=== PATIENT | male | born 1975 | race Caucasian/White ===

== ENCOUNTER 2020-01-30 14:47 | Emergency (ER) | payer BC ==
[2020-01-30 14:52] VITALS: BP 166/99; PULSE 62; RESP 18; TEMP 98.4
[2020-01-30] MEDS ORDERED: DIPH,PERTUS(ACELL)TETVAC-LF 0.5 ML VIAL IM ONE (14:59)
[2020-01-30] MEDS ORDERED: LIDOCAINE 1% INJ 10MG/ML (20 ML MDV) SQ ONE (14:59)
--- NOTE | 2020-01-30 15:37 | ED ---
Wound/Laceration HPI - General Chief Complaint: Wound/Laceration Stated Complaint: Head Lac Time Seen by Provider: 01/30/20 14:56 Source: patient Mode of arrival: ambulatory Limitations: no limitations - History of Present Illness Initial Comments: Patient is a 44-year-old male presenting to the emergency Department with complaints of a laceration to his forehead. Patient states he was attempting to remove a wooden pillar that was into the ground when it broke and the would pillar hit his forehead. Patient denies loss of consciousness, blurry vision, nausea, vomiting. He states he does not have a headache. He does not remember his last tetanus vaccine. He denies being on blood thinners. He has no other complaints at this time. - Related Data Previous Rx's Medication Instructions Recorded Hydrocodone/Acetaminophen [[place] 1 each PO Q4HR PRN #20 tab 05/04/14 5-325] Ketorolac [Toradol] 10 mg PO Q6HR #15 tab 05/04/14 Tamsulosin HCl [Flomax] 0.4 mg PO DAILY #10 cap 05/04/14 Ciprofloxacin HCl [Cipro] 500 mg PO Q12HR #14 tablet 05/06/14 Docusate [Colace] 100 mg PO BID #4 capsule 05/06/14 Ondansetron HCl [Zofran] 4 mg PO Q8HR #15 tab 05/06/14 Allergies Allergy/AdvReac Type Severity Reaction Status Date / Time No Known Allergies Allergy Verified 01/30/20 14:52 Review of Systems ROS Statement: Those systems with pertinent positive or pertinent negative responses have been documented in the HPI. ROS Other: All systems not noted in ROS Statement are negative. Past Medical History Past Medical History: No Reported History History of Any Multi-Drug Resistant Organisms: None Reported Past Surgical History: No Surgical Hx Reported Past Psychological History: No Psychological Hx Reported Smoking Status: Never smoker Past Alcohol Use History: None Reported Past Drug Use History: None Reported General Exam - General Exam Comments Initial Comments: GENERAL: Well-appearing, well-nourished and in no acute distress. HEAD: Atraumatic, normocephalic. EYES: Pupils equal round and reactive to light, extraocular movements intact, sclera anicteric, conjunctiva are normal. ENT: TMs normal, nares patent, oropharynx clear without exudates. Moist mucous membranes. NECK: Normal range of motion, supple without lymphadenopathy or JVD. LUNGS: Breath sounds clear to auscultation bilaterally and equal. No wheezes rales or rhonchi. HEART: Regular rate and rhythm without murmurs, rubs or gallops. ABDOMEN: Soft, nontender, normoactive bowel sounds. No guarding, no rebound. No masses appreciated. : Deferred EXTREMITIES: Normal range of motion, no pitting or edema. No clubbing or cyanosis. NEUROLOGICAL: Cranial nerves II through XII grossly intact. Normal speech, normal gait. PSYCH: Normal mood, normal affect. SKIN: Warm, Dry, normal turgor, no rashes. Patient has a 1 cm, L-shaped laceration to the left upper forehead, into the hairline. Bleeding is controlled at this time. There is no hematoma. Limitations: no limitations Course Vital Signs 01/30/20 14:49 Temperature 98.4 F Pulse Rate 62 Respiratory 18 Rate Blood Pressure 166/99 O2 Sat by Pulse 99 Oximetry Procedures - Laceration Laceration #1 Consent Obtained: verbal consent Indication: laceration Site: scalp (Left upper forehead, into the scalp) Size (cm): 1 Description: linear Depth: simple, single layer Anesthetic Used: lidocaine 1% Anesthesia Technique: local infiltration Amount (mls): 2 Pre-repair: irrigated extensively Type of Sutures: nylon Size of Sutures: 4-0 Number of Sutures: 3 Technique: simple, interrupted Patient Tolerated Procedure: well Medical Decision Making - Medical Decision Making Patient is a 44-year-old male here with a 1 cm, L-shaped laceration to the left upper forehead. There was no loss of consciousness. Patient's exam today is unremarkable. Patient's tetanus vaccine was updated. Patient received 3, 4-0 sutures. Patient tolerated procedure well. He is stable for discharge. He'll have sutures removed in 7-10 days. Patient is agreement with this plan of care. Disposition Clinical Impression: Forehead laceration Disposition: HOME SELF-CARE Condition: Stable Instructions (If sedation given, give patient instructions): Care For Your Stitches (ED) Additional Instructions: Stitches need to removed in 7-10 days. Keep area clean and dry. Is patient prescribed a controlled substance at d/c from ED?: No Referrals: None,Stated [Primary Care Provider] - 1-2 days
== END 2020-01-30 15:43 | disposition home or self-care (01) ==
LOC: EC 14:47
DX: S01.81XA Laceration without foreign body of other part of head, initial encounter (principal); Z23 Encounter for immunization; W22.8XXA Striking against or struck by other objects, initial encounter; Y93.89 Activity, other specified; Y92.009 Unspecified place in unspecified non-institutional (private) residence as the place of occurrence of the external cause
CPT/HCPCS: 90715; 90471; 99282; 12011; J2001

== ENCOUNTER 2020-05-06 17:24 | Emergency (ER) | payer BC ==
[2020-05-06] MEDS ORDERED: SODIUM CHLORIDE 0.9% 1,000 ML IV STA (17:46)
[2020-05-06] MEDS ORDERED: KETOROLAC 30 MG/ML 1 ML VIAL IVP STA (17:46)
[2020-05-06] MEDS ORDERED: ONDANSETRON 4 MG/2 ML VIAL IVP STA (17:46)
--- NOTE | 2020-05-06 17:49 | ED ---
Abdominal Pain HPI - General Chief Complaint: Abdominal Pain Stated Complaint: kidney stones Time Seen by Provider: 05/06/20 17:35 Source: patient Mode of arrival: ambulatory Limitations: no limitations - History of Present Illness Initial Comments: patient is a 45-year-old male presenting to the emergency Department with complaints of left flank pain that started approximately 3 hours ago. He states he does have a history of kidney stones and this feels similar. He does admit to nausea, vomiting. He states some radiation of pain into his left side. He denies any history of abdominal surgeries. he has been having normal bowel movements. Denies any hematuria. Denies any fever or chills. He did not take any pain medicine for this. He has no further complaints at this time. Upon arrival to the ER, his vitals are stable. - Related Data Previous Rx's Medication Instructions Recorded Hydrocodone/Acetaminophen [[place] 1 each PO Q4HR PRN #20 tab 05/04/14 5-325] Ketorolac [Toradol] 10 mg PO Q6HR #15 tab 05/04/14 Tamsulosin HCl [Flomax] 0.4 mg PO DAILY #10 cap 05/04/14 Ciprofloxacin HCl [Cipro] 500 mg PO Q12HR #14 tablet 05/06/14 Docusate [Colace] 100 mg PO BID #4 capsule 05/06/14 Ondansetron HCl [Zofran] 4 mg PO Q8HR #15 tab 05/06/14 Ketorolac [Toradol] 10 mg PO Q8HR #15 tab 05/06/20 Ondansetron Odt [Zofran Odt] 4 mg PO Q8HR PRN #10 tab 05/06/20 Tamsulosin [Flomax] 0.4 mg PO DAILY #7 cap 05/06/20 Allergies Allergy/AdvReac Type Severity Reaction Status Date / Time No Known Allergies Allergy Verified 05/06/20 17:32 Review of Systems ROS Statement: Those systems with pertinent positive or pertinent negative responses have been documented in the HPI. ROS Other: All systems not noted in ROS Statement are negative. Past Medical History Past Medical History: No Reported History History of Any Multi-Drug Resistant Organisms: None Reported Past Surgical History: No Surgical Hx Reported Past Psychological History: No Psychological Hx Reported Past Alcohol Use History: None Reported Past Drug Use History: None Reported General Exam - General Exam Comments Initial Comments: GENERAL: Patient is well-developed and well-nourished. Patient is nontoxic and in no acute distress, but is standing, appears uncomfortable. HEAD: Atraumatic, normocephalic. EYES: Pupils equal round and reactive to light, extraocular movements intact, sclera anicteric, conjunctiva are normal. Eyelids were unremarkable. ENT: TMs normal, nares patent, oropharynx clear without exudates. Moist mucous membranes. NECK: Normal range of motion, supple without lymphadenopathy or JVD. LUNGS: Unlabored respirations. Breath sounds clear to auscultation bilaterally and equal. No wheezes rales or rhonchi. HEART: Regular rate and rhythm without murmurs, rubs or gallops. ABDOMEN: left flank pain, left side of the abdomen pain. No other abdominal pain with palpation. Soft, normoactive bowel sounds. No guarding, no rebound. No masses appreciated. : Deferred MUSCULOSKELETAL: Normal extremities with adequate strength and normal range of motion, no pitting or edema. No clubbing or cyanosis. NEUROLOGICAL: Normal speech, normal gait. PSYCH: Normal mood, normal affect. SKIN: Warm, Dry, normal turgor, no rashes or lesions noted. Limitations: no limitations Course Vital Signs 05/06/20 17:29 Temperature 98.7 F Pulse Rate 84 Respiratory 18 Rate Blood Pressure 182/123 O2 Sat by Pulse 99 Oximetry Medical Decision Making - Medical Decision Making patient is a 45-year-old male here for left flank pain 3 hours. He has a history of kidney stones which feels similar. His vitals are stable. Lab work shows no acute abnormalities, urine has a large amount of blood, no signs of infection. CT of the abdomen shows left-sided hydronephrosis, 6 mm distal ureteral stone. Patient was given fluids, Zofran and Toradol reports improvement in his symptoms. He is comfortable in the bed. I discussed with patient the findings. He is stable for discharge. I will send him home with some additional Zofran, Flomax, Toradol for discomfort. I will give him urology referral. Patient is agreement with this plan of care. Return parameters were discussed with the patient he verbalizes understanding. Case discussed with Dr. rivera. - Lab Data Result diagrams: 05/06/20 17:59 08/08/20 17:59 Lab Results 05/06/20 05/06/20 05/06/20 Range/Units 17:59 17:59 17:59 WBC 9.6 (3.8-10.6) k/uL RBC 5.77 (4.30-5.90) m/uL Hgb 16.5 (13.0-17.5) gm/dL Hct 48.5 (39.0-53.0) % MCV 84.0 (80.0-100.0) fL MCH 28.6 (25.0-35.0) pg MCHC 34.1 (31.0-37.0) g/dL RDW 12.4 (11.5-15.5) % Plt Count 228 (150-450) k/uL Neutrophils % 58 % Lymphocytes % 32 % Monocytes % 5 % Eosinophils % 3 % Basophils % 1 % Neutrophils # 5.6 (1.3-7.7) k/uL Lymphocytes # 3.1 (1.0-4.8) k/uL Monocytes # 0.5 (0-1.0) k/uL Eosinophils # 0.2 (0-0.7) k/uL Basophils # 0.1 (0-0.2) k/uL Sodium 139 (137-145) mmol/L Potassium 3.9 (3.5-5.1) mmol/L Chloride 107 (98-107) mmol/L Carbon Dioxide 22 (22-30) mmol/L Anion Gap 10 mmol/L BUN 19 (9-20) mg/dL Creatinine 1.38 H (0.66-1.25) mg/dL Est GFR (CKD-EPI)AfAm 71 (>60 ml/min/1.73 sqM) Est GFR (CKD-EPI)NonAf 61 (>60 ml/min/1.73 sqM) Glucose 107 H (74-99) mg/dL Plasma Lactic Acid Aaron (0.7-2.0) mmol/L Calcium 10.1 (8.4-10.2) mg/dL Total Bilirubin 0.9 (0.2-1.3) mg/dL AST 37 (17-59) U/L ALT 22 (4-49) U/L Alkaline Phosphatase 87 (38-126) U/L Total Protein 7.6 (6.3-8.2) g/dL Albumin 4.9 (3.5-5.0) g/dL Lipase 241 (23-300) U/L Urine Color Yellow Urine Appearance Clear (Clear) Urine pH 5.5 (5.0-8.0) Ur Specific [place] 1.025 (1.001-1.035) Urine Protein Trace H (Negative) Urine Glucose (UA) Negative (Negative) Urine Ketones Negative (Negative) Urine Blood Large H (Negative) Urine Nitrite Negative (Negative) Urine Bilirubin Negative (Negative) Urine Urobilinogen <2.0 (<2.0) mg/dL Ur Leukocyte Esterase Negative (Negative) Urine RBC >182 H (0-5) /hpf Urine WBC 1 (0-5) /hpf Urine Mucus Rare H (None) /hpf 05/06/20 Range/Units 17:59 WBC (3.8-10.6) k/uL RBC (4.30-5.90) m/uL Hgb (13.0-17.5) gm/dL Hct (39.0-53.0) % MCV (80.0-100.0) fL MCH (25.0-35.0) pg MCHC (31.0-37.0) g/dL RDW (11.5-15.5) % Plt Count (150-450) k/uL Neutrophils % % Lymphocytes % % Monocytes % % Eosinophils % % Basophils % % Neutrophils # (1.3-7.7) k/uL Lymphocytes # (1.0-4.8) k/uL Monocytes # (0-1.0) k/uL Eosinophils # (0-0.7) k/uL Basophils # (0-0.2) k/uL Sodium (137-145) mmol/L Potassium (3.5-5.1) mmol/L Chloride (98-107) mmol/L Carbon Dioxide (22-30) mmol/L Anion Gap mmol/L BUN (9-20) mg/dL Creatinine (0.66-1.25) mg/dL Est GFR (CKD-EPI)AfAm (>60 ml/min/1.73 sqM) Est GFR (CKD-EPI)NonAf (>60 ml/min/1.73 sqM) Glucose (74-99) mg/dL Plasma Lactic Acid Aaron 1.3 (0.7-2.0) mmol/L Calcium (8.4-10.2) mg/dL Total Bilirubin (0.2-1.3) mg/dL AST (17-59) U/L ALT (4-49) U/L Alkaline Phosphatase (38-126) U/L Total Protein (6.3-8.2) g/dL Albumin (3.5-5.0) g/dL Lipase (23-300) U/L Urine Color Urine Appearance (Clear) Urine pH (5.0-8.0) Ur Specific [place] (1.001-1.035) Urine Protein (Negative) Urine Glucose (UA) (Negative) Urine Ketones (Negative) Urine Blood (Negative) Urine Nitrite (Negative) Urine Bilirubin (Negative) Urine Urobilinogen (<2.0) mg/dL Ur Leukocyte Esterase (Negative) Urine RBC (0-5) /hpf Urine WBC (0-5) /hpf Urine Mucus (None) /hpf Disposition Clinical Impression: Left flank pain, Left ureteral stone Disposition: HOME SELF-CARE Condition: Stable Instructions (If sedation given, give patient instructions): Kidney Stones (ED) Additional Instructions: Please return to the Emergency Department if symptoms worsen or any other concerns. Take medications as prescribed. Follow up with PCP or urology as needed. Prescriptions: Tamsulosin [Flomax] 0.4 mg PO DAILY #7 cap Ketorolac [Toradol] 10 mg PO Q8HR #15 tab Ondansetron Odt [Zofran Odt] 4 mg PO Q8HR PRN #10 tab PRN Reason: Nausea Is patient prescribed a controlled substance at d/c from ED?: No Referrals: None,Stated [Primary Care Provider] - 1-2 days Renzo Corado MD [STAFF PHYSICIAN] - 1-2 days
[2020-05-06 18:17] LABS: Basophils # (A) 0.1 k/uL (0-0.2); Basophils % (A) 1 %; Eosinophils # (A) 0.2 k/uL (0-0.7); Eosinophils % (A) 3 %; HCT 48.5 % (39.0-53.0); HGB 16.5 gm/dL (13.0-17.5); Lymphocytes # (A) 3.1 k/uL (1.0-4.8); Lymphocytes % (A) 32 %; MCH 28.6 pg (25.0-35.0); MCHC 34.1 g/dL (31.0-37.0); Mean Platelet Volume 7.5; Monocytes # (A) 0.5 k/uL (0-1.0); Monocytes % (A) 5 %; Neutrophils # (A) 5.6 k/uL (1.3-7.7); Neutrophils % (A) 58 %; Platelet Count 228 k/uL (150-450); RBC 5.77 m/uL (4.30-5.90); RDW 12.4 % (11.5-15.5); WBC 9.6 k/uL (3.8-10.6)
[2020-05-06 18:28] LABS: Albumin 4.9 g/dL (3.5-5.0); Calcium 10.1 mg/dL (8.4-10.2); Potassium 3.9 mmol/L (3.5-5.1); Total Bilirubin 0.9 mg/dL (0.2-1.3); Total Protein 7.6 g/dL (6.3-8.2)
[2020-05-06 18:34] LABS: Appearance,Urine Clear (Clear); Bilirubin,Urine Negative (Negative); Blood,Urine Large (Negative); Color,Urine Yellow; Glucose,Urine (UA) Negative (Negative); Ketones,Urine Negative (Negative); Leukocyte Esterase,Urine Negative (Negative); Mucus,Urine Rare /hpf; Nitrite,Urine Negative (Negative); PH, Urine 5.5 (5.0-8.0); Protein,Urine Trace (Negative); RBC,Urine >182 /hpf (0-5); Specific Gravity,Urine 1.025 (1.001-1.035); Urobilinogen,Urine <2.0 mg/dL (<2.0); WBC,Urine 1 /hpf (0-5)
--- NOTE | 2020-05-06 18:48 | CT ---
EXAMINATION TYPE: CT abdomen pelvis wo con DATE OF EXAM: 05/06/2020 COMPARISON: 05/04/2014 HISTORY: Left sided pain with history of stones. CT DLP: 881.9 mGycm Automated exposure control for dose reduction was used. Images were obtained from the diaphragm to the floor the pelvis with no contrast. The lung bases are clear. There is no pleural effusion. Heart size is normal. There is no pericardial effusion. Liver spleen stomach pancreas gallbladder appear normal. Bile ducts are not dilated. There is no adrenal mass. Kidneys show normal size and contour. There is left-sided hydronephrosis wi th 6 mm obstructing calculus at the left ureteropelvic junction. There is 2 mm calcification lower po le left kidney. There are 2 mm calcifications in the lateral left kidney. There is 2 mm calcification upper pole right kidney. The ureters are not dilated. There is no retroperitoneal adenopathy. Append ix appears normal. Bladder distends smoothly. There is no inguinal hernia. There is no free fluid in the pelvis. There i s no sign of a pelvic mass. There is no mesenteric edema. There is no ascites or free air. There is no bowel obstruction. There i s 2 cm umbilical hernia that contains fat. There is narrowing of L4-5 and L5-S1 disc spaces with spurring. Lumbar vertebra have normal alignment . There is no compression fracture. Bony pelvis is intact. IMPRESSION: Obstructing calculus proximal left ureter with left-sided hydronephrosis. Multiple bilateral renal calculi. There is clearing of the right side obstruction compared to old naila waldrop
[2020-05-06 19:36] VITALS: BP 133/92; PULSE 57; RESP 16; TEMP 97.9
== END 2020-05-06 19:36 | disposition home or self-care (01) ==
LOC: EC 17:24
DX: N13.2 Hydronephrosis with renal and ureteral calculous obstruction (principal)
CPT/HCPCS: 36415; 80053; 83605; 83690; 85025; 81001; 74176; 99284; 96374; 96375; 96361; J2405; J1885

== ENCOUNTER 2020-05-10 14:06 | Emergency (ER) | payer BC ==
[2020-05-10 14:16] VITALS: RESP 16; TEMP 98.2
[2020-05-10] MEDS ORDERED: HYDROmorphone 0.5 MG/0.5 ML SYRINGE IVP STA (14:45)
[2020-05-10] MEDS ORDERED: ONDANSETRON 4 MG/2 ML VIAL IVP STA (14:45)
[2020-05-10] MEDS ORDERED: SODIUM CHLORIDE 0.9% 2,000 ML IV STA (14:45)
--- NOTE | 2020-05-10 14:53 | ED ---
Abdominal Pain HPI - General Chief Complaint: Abdominal Pain Stated Complaint: kidney stones Time Seen by Provider: 05/10/20 14:33 Source: patient, RN notes reviewed Mode of arrival: ambulatory Limitations: no limitations - History of Present Illness Initial Comments: This a 45-year-old male presents emergency Department chief complaint severe left flank pain. Patient states that he is seen here on Friday diagnosed with a left 6 mm UVJ calculus. Patient states that the pain seemed to get better on Friday but states that the pain is unbearable today. Patient does not have a current primary care physician or urologist. Patient states that he has been taking Toradol which was helping but he recently ran out of Toradol. Patient patient denies any fevers or chills no dysuria denies any current hematuria. Patient denies any chest pain or shortness of breath no other complaints. - Related Data Previous Rx's Medication Instructions Recorded Hydrocodone/Acetaminophen [[place] 1 each PO Q4HR PRN #20 tab 05/04/14 5-325] Ketorolac [Toradol] 10 mg PO Q6HR #15 tab 05/04/14 Tamsulosin HCl [Flomax] 0.4 mg PO DAILY #10 cap 05/04/14 Ciprofloxacin HCl [Cipro] 500 mg PO Q12HR #14 tablet 05/06/14 Docusate [Colace] 100 mg PO BID #4 capsule 05/06/14 Ondansetron HCl [Zofran] 4 mg PO Q8HR #15 tab 05/06/14 Ketorolac [Toradol] 10 mg PO Q8HR #15 tab 05/06/20 Ondansetron Odt [Zofran Odt] 4 mg PO Q8HR PRN #10 tab 05/06/20 Tamsulosin [Flomax] 0.4 mg PO DAILY #7 cap 05/06/20 HYDROcodone/APAP 7.5-325MG [[place] 1 tab PO Q6HR PRN 3 Days #12 tab 05/10/20 7.5-325] Ondansetron Odt [Zofran Odt] 4 mg PO Q8HR PRN #14 tab 05/10/20 Allergies Allergy/AdvReac Type Severity Reaction Status Date / Time No Known Allergies Allergy Verified 05/10/20 14:15 Review of Systems ROS Statement: Those systems with pertinent positive or pertinent negative responses have been documented in the HPI. ROS Other: All systems not noted in ROS Statement are negative. Past Medical History Past Medical History: No Reported History History of Any Multi-Drug Resistant Organisms: None Reported Past Surgical History: No Surgical Hx Reported Past Psychological History: No Psychological Hx Reported Smoking Status: Never smoker Past Alcohol Use History: None Reported Past Drug Use History: None Reported General Exam Limitations: no limitations General appearance: alert, in no apparent distress Head exam: Present: atraumatic, normocephalic, normal inspection Eye exam: Present: normal appearance, PERRL, EOMI. Absent: scleral icterus, conjunctival injection, periorbital swelling ENT exam: Present: normal exam, normal oropharynx, mucous membranes moist Neck exam: Present: normal inspection, full ROM. Absent: tenderness, meningismus, lymphadenopathy Respiratory exam: Present: normal lung sounds bilaterally. Absent: respiratory distress, wheezes, rales, rhonchi, stridor Cardiovascular Exam: Present: regular rate, normal rhythm, normal heart sounds. Absent: systolic murmur, diastolic murmur, rubs, gallop, clicks GI/Abdominal exam: Present: soft, normal bowel sounds. Absent: distended, tenderness, guarding, rebound, rigid Back exam: Absent: CVA tenderness (R), CVA tenderness (L) Neurological exam: Present: alert, oriented X3 Skin exam: Present: warm, dry, intact, normal color. Absent: rash Course Vital Signs 05/10/20 05/10/20 14:13 16:30 Temperature 98.2 F Pulse Rate 87 6 L Respiratory 16 16 Rate Blood Pressure 182/100 141/86 O2 Sat by Pulse 98 99 Oximetry Medical Decision Making - Medical Decision Making 45-year-old male present emergency department for kidney stone. Patient continues to have left-sided flank pain related to a 6 mm stone. Patient's creatinine is 2.0. Case discussed with Dr. Mackey recommends patient be seen in office tomorrow at 1120. Patient will be discharged with pain medication he is advised to not take any anti-inflammatories. Return parameters discussed. - Lab Data Result diagrams: 05/10/20 15:07 05/10/20 15:07 Lab Results 05/10/20 05/10/20 05/10/20 Range/Units 15:07 15:07 15:07 WBC 10.4 (3.8-10.6) k/uL RBC 5.39 (4.30-5.90) m/uL Hgb 15.0 (13.0-17.5) gm/dL Hct 45.4 (39.0-53.0) % MCV 84.2 (80.0-100.0) fL MCH 27.9 (25.0-35.0) pg MCHC 33.1 (31.0-37.0) g/dL RDW 12.2 (11.5-15.5) % Plt Count 203 (150-450) k/uL Neutrophils % 81 % Lymphocytes % 10 % Monocytes % 7 % Eosinophils % 1 % Basophils % 0 % Neutrophils # 8.4 H (1.3-7.7) k/uL Lymphocytes # 1.1 (1.0-4.8) k/uL Monocytes # 0.7 (0-1.0) k/uL Eosinophils # 0.1 (0-0.7) k/uL Basophils # 0.0 (0-0.2) k/uL Sodium 138 (137-145) mmol/L Potassium 4.7 (3.5-5.1) mmol/L Chloride 104 (98-107) mmol/L Carbon Dioxide 24 (22-30) mmol/L Anion Gap 10 mmol/L BUN 21 H (9-20) mg/dL Creatinine 2.03 H (0.66-1.25) mg/dL Est GFR (CKD-EPI)AfAm 44 (>60 ml/min/1.73 sqM) Est GFR (CKD-EPI)NonAf 38 (>60 ml/min/1.73 sqM) Glucose 104 H (74-99) mg/dL Calcium 9.5 (8.4-10.2) mg/dL Total Bilirubin 1.2 (0.2-1.3) mg/dL AST 33 (17-59) U/L ALT 22 (4-49) U/L Alkaline Phosphatase 92 (38-126) U/L Total Protein 7.1 (6.3-8.2) g/dL Albumin 4.6 (3.5-5.0) g/dL Lipase 140 (23-300) U/L Urine Color Yellow Urine Appearance Clear (Clear) Urine pH 5.5 (5.0-8.0) Ur Specific [place] 1.023 (1.001-1.035) Urine Protein Negative (Negative) Urine Glucose (UA) Negative (Negative) Urine Ketones Negative (Negative) Urine Blood Moderate H (Negative) Urine Nitrite Negative (Negative) Urine Bilirubin Negative (Negative) Urine Urobilinogen <2.0 (<2.0) mg/dL Ur Leukocyte Esterase Trace H (Negative) Urine RBC 65 H (0-5) /hpf Urine WBC 4 (0-5) /hpf Urine Bacteria Rare H (None) /hpf Urine Mucus Rare H (None) /hpf Disposition Clinical Impression: Acute kidney injury, Left ureteral stone, Left flank pain Disposition: HOME SELF-CARE Condition: Stable Instructions (If sedation given, give patient instructions): Abdominal Pain (ED) Additional Instructions: Please return to the Emergency Department if symptoms worsen or any other concerns. Prescriptions: HYDROcodone/APAP 7.5-325MG [[place] 7.5-325] 1 tab PO Q6HR PRN 3 Days #12 tab PRN Reason: pain Ondansetron Odt [Zofran Odt] 4 mg PO Q8HR PRN #14 tab PRN Reason: Nausea Is patient prescribed a controlled substance at d/c from ED?: Yes When asked, does pt state using other controlled substances?: No If prescribed controlled substance>3 days was MAPS reviewed?: Prescribed <3 Days If opioid is for acute pain is fill amount 7 days or less?: Yes If Rx opioid, was Start Talking consent form obtained?: Yes Referrals: None,Stated [Primary Care Provider] - 1-2 days Casey Mackey MD [STAFF PHYSICIAN] - 1-2 days Time of Disposition: 16:44
[2020-05-10 15:33] LABS: Basophils % (A) 0 %; Eosinophils # (A) 0.1 k/uL (0-0.7); Eosinophils % (A) 1 %; HCT 45.4 % (39.0-53.0); Lymphocytes # (A) 1.1 k/uL (1.0-4.8); Lymphocytes % (A) 10 %; MCH 27.9 pg (25.0-35.0); MCHC 33.1 g/dL (31.0-37.0); MCV 84.2 fL (80.0-100.0); Mean Platelet Volume 7.5; Monocytes # (A) 0.7 k/uL (0-1.0); Monocytes % (A) 7 %; Neutrophils # (A) 8.4 k/uL (1.3-7.7); Neutrophils % (A) 81 %; Platelet Count 203 k/uL (150-450); RBC 5.39 m/uL (4.30-5.90); RDW 12.2 % (11.5-15.5); WBC 10.4 k/uL (3.8-10.6)
[2020-05-10 15:40] LABS: Albumin 4.6 g/dL (3.5-5.0); Appearance,Urine Clear (Clear); Bacteria,Urine Rare /hpf; Bilirubin,Urine Negative (Negative); Blood,Urine Moderate (Negative); Calcium 9.5 mg/dL (8.4-10.2); Color,Urine Yellow; Glucose,Urine (UA) Negative (Negative); Ketones,Urine Negative (Negative); Leukocyte Esterase,Urine Trace (Negative); Mucus,Urine Rare /hpf; Nitrite,Urine Negative (Negative); PH, Urine 5.5 (5.0-8.0); Potassium 4.7 mmol/L (3.5-5.1); Protein,Urine Negative (Negative); RBC,Urine 65 /hpf (0-5); Specific Gravity,Urine 1.023 (1.001-1.035); Total Bilirubin 1.2 mg/dL (0.2-1.3); Total Protein 7.1 g/dL (6.3-8.2); Urobilinogen,Urine <2.0 mg/dL (<2.0); WBC,Urine 4 /hpf (0-5)
--- NOTE | 2020-05-10 15:56 | XR ---
EXAMINATION TYPE: XR KUB DATE OF EXAM: 05/10/2020 3:31 PM CLINICAL HISTORY: Left flank pain. History of kidney stones. TECHNIQUE: Upright images of the abdomen and pelvis were obtained COMPARISON: Abdominal radiograph 05/06/2014. CT abdomen pelvis 05/06/2020. FINDINGS: The known left proximal ureteral 6 mm calculus is just inferolateral to the L3 transverse p rocess, not significant changed in position from 05/06/2020 CT comparison. The bilateral renal shadows are excluded due to overlying bowel contents. Pelvic vascular and prostate calcification. The lung ba ses are clear. The osseous structures are intact. IMPRESSION: 1. Known left proximal ureteral 6 mm calculus is not significantly changed in position versus 0 CT comparison. 2. Nonspecific bowel gas pattern.
[2020-05-10 16:53] VITALS: BP 139/89; PULSE 79
== END 2020-05-10 16:52 | disposition home or self-care (01) ==
LOC: EC 14:06
DX: N20.1 Calculus of ureter (principal); N17.9 Acute kidney failure, unspecified; Z87.442 Personal history of urinary calculi
CPT/HCPCS: 36415; 80053; 83690; 85025; 81001; 74018; 96374; 96375; 96361 ×2; 99284; J2405; J1170

== ENCOUNTER 2025-04-11 05:49 | Day surgery (SDC) | payer BC ==
[2025-04-11] MEDS ORDERED: LIDOCAINE 1% (10MG/ML) FOR IV START INTRADERMA PRN (06:33)
[2025-04-11] MEDS ORDERED: HYDROmorphone 0.5 MG/0.5 ML SYRINGE IVP PRN (06:33)
[2025-04-11] MEDS: ONDANSETRON 4 MG/2 ML VIAL IVP ONE (06:39)
[2025-04-11] MEDS: LACTATED RINGERS 1,000 ML IV SCH (06:39)
[2025-04-11] MEDS: DEXAMETHASONE SOD PHOSPHATE 4 MG/ML 1 ML VIAL IV ONE (06:39)
[2025-04-11] MEDS: ACETAMINOPHEN TAB 500 MG TAB PO PRN (06:41)
[2025-04-11] MEDS: IV FLUID CONTINUATION 1,000 ML IV ONE (06:43)
[2025-04-11 07:04] LABS: HCT 46.5 % (39.6-50.0); HGB 16.0 g/dL (13.0-17.0); MCH 28.5 pg (27.0-32.0); MCHC 34.4 g/dL (32.0-37.0); MCV 82.7 fL (80.0-97.0); Platelet Count 220 10*3/uL (140-440); RBC 5.62 10*6/uL (4.40-5.60); RDW 12.4 % (11.5-14.5); WBC 6.88 10*3/uL (4.50-10.00)
--- NOTE | 2025-04-11 07:19 | P.ANPRN ---
Procedure Note - Anesthesia - Nerve Block Performed Bilateral Erector Spinae Single Time Out Performed: Yes Date of Procedure: 04/11/25 Procedure Start Time: : Procedure Stop Time: :08 Location of Patient: PreOp Indication: Acute Post-Operative Pain, Analgesia, Requested by Surgeon Sedation Type: Sedate with meaningful contact maintained Preparation: Sterile Prep Position: Prone Catheter: None Needle Types: Pajunk Needle Gauge: 21 Ultrasound used to visualize needle placement: Yes Ultrasound used to observe medication spread: Yes Injectate: 0.5% Ropivacaine (see comment for volume) ([id number], Needle level X16---Btxa side.) Blood Aspirated: No Pain Paresthesia on Injection Noted: No Resistance on Injection: Normal Image Stored and Saved: Yes Events: Uneventful and Well Tolerated
[2025-04-11] MEDS: MIDAZOLAM 2 MG/2 ML VIAL IV ONE (07:20)
[2025-04-11] MEDS: fentaNYL (PF) 50 MCG/ML 2 ML AMP IVP PRN (07:21)
[2025-04-11] MEDS: HEPARIN SODIUM,PORCINE 5,000 UNIT/ML 1 ML VIAL SQ PRN (07:22)
[2025-04-11] MEDS ORDERED: DEXAMETHASONE SOD PHOSPHATE 4 MG/ML 1 ML VIAL ONE (07:28)
[2025-04-11] MEDS ORDERED: ROPIVACAINE 5 MG/ML 30 ML VIAL ONE (07:28)
[2025-04-11] MEDS ORDERED: LIDOCAINE 1% INJ 10MG/ML (20 ML MDV) ONE (07:28)
[2025-04-11] MEDS ORDERED: fentaNYL (PF) 50 MCG/ML 2 ML AMP ONE (07:28)
[2025-04-11] MEDS ORDERED: GLYCOPYRROLATE 0.2 MG/ML 2 ML VIAL ONE (07:28)
[2025-04-11] MEDS ORDERED: LIDOCAINE 4% LTA KIT (4 ML) TOPICAL ONE (07:28)
[2025-04-11] MEDS ORDERED: SUCCINYLCHOLINE CHLORIDE 200 MG/10 ML VIAL IV ONE (07:28)
[2025-04-11] MEDS ORDERED: NEOSTIGMINE 1 MG/ML 10 ML VIAL ONE (07:28)
[2025-04-11] MEDS ORDERED: PROPOFOL 10 MG/ML 20 ML VIAL IV ONE (07:28)
[2025-04-11] MEDS ORDERED: ROCURONIUM 10 MG/ML (5 ML VIAL) IV ONE (07:28)
[2025-04-11] MEDS: BUPIVACAINE (PF) 0.25% 30 ML VIAL SQ ONE ×3 (07:46→08:27)
[2025-04-11 08:41] VITALS: TEMP 97.3
--- NOTE | 2025-04-11 08:51 | P.GSHP ---
History of Present Illness H&P Date: 04/11/25 Chief Complaint: Umbilical hernia 49-year-old male seen in the office in January. Patient has complaints of a bulge at the umbilicus. Gradually increasing in size. Mild soreness. Past Medical History Past Medical History: No Reported History Additional Past Medical History / Comment(s): kidney stones, umbilical hernia History of Any Multi-Drug Resistant Organisms: None Reported Past Surgical History: No Surgical Hx Reported Additional Past Surgical History / Comment(s): lithotripsy Past Anesthesia/Blood Transfusion Reactions: No Reported Reaction Smoking Status: Never smoker Medications and Allergies Home Medications Medication Instructions Recorded Confirmed Type No Known Home Medications 04/06/25 04/11/25 History Allergies Allergy/AdvReac Type Severity Reaction Status Date / Time No Known Allergies Allergy Verified 04/06/25 15:20 Surgical - Exam Vital Signs Temp Pulse Resp BP Pulse Ox 97.7 F 71 16 130/89 98 04/11/25 06:17 04/11/25 06:17 04/11/25 06:17 04/11/25 06:17 04/11/25 06:17 Physical exam: General: Well-developed, well-nourished HEENT: Normocephalic, sclerae nonicteric Abdomen: Nontender, nondistended, small reducible umbilical hernia Extremities: No edema Neuro: Alert and oriented Results - Labs 04/11/25 06:57 Abnormal Lab Results - Last 24 Hours (Table) 04/11/25 Range/Units 06:57 RBC 5.62 H (4.40-5.60) 10*6/uL Assessment and Plan (1) Umbilical hernia Narrative/Plan: 49-year-old male with small reducible umbilical hernia. Will proceed with open repair with probable mesh. Risks of bleeding, infection, recurrence, chronic pain, bladder and bowel injury, numbness, scarring, and anesthesia related complications were discussed. The correlation between hernia recurrence, obesity and smoking were reviewed in detail. The patient understands and wishes to proceed. Current Visit: Yes Status: Acute Code(s): K42.9 - UMBILICAL HERNIA WITHOUT OBSTRUCTION OR GANGRENE SNOMED Code(s): 415502256
--- NOTE | 2025-04-11 08:52 | P.PCN ---
Date of Procedure: 04/11/25 Procedure(s) Performed: PREOPERATIVE DIAGNOSIS: Reducible umbilical hernia POSTOPERATIVE DIAGNOSIS: Same PROCEDURE: Open repair reducible umbilical hernia with mesh SURGEON: Dr. De Paz ANESTHESIA: General EBL: 5 cc OPERATIVE PROCEDURE DETAILS: The patient was placed in the operating table in the supine position. A left sided periumbilical incision was made using the scalpel. The subcutaneous tissues were dissected bluntly and with cautery. The hernia sac was identified. The umbilical attachments to the fascia were divided using electrocautery. The hernia sac was excised. The defect in the fascia measured 12 x 6 mm. The fat overlying the fascia was dissected. No additional defects were seen. The preperitoneal space was then dissected using blunt dissection and electrocautery. The 4.3 cm ventral ex mesh was placed beneath the fascia and sutured in place using trans-fascial 0 Ethibond sutures. The defect was closed using interrupted vest over pants 0 Ethibond mattress sutures. The subcutaneous tissues were reapproximated using inverted 2-0 & 3-0 Vicryl sutures. The umbilicus was tacked back down to the fascia using a 2-0 Vicryl suture. The skin was closed using 4-0 Monocryl sutures. Skin glue and sterile dressings were then applied. HERNIA CHARACTERISTICS: Length: 6 mm Width: 12 mm Type: Umbilical TYPE OF MESH USED: Ventralex LOCATION OF MESH: Sublay extraperitoneal FIXATION: 0 Ethibond PREOPERATIVE DISCUSSION ON SMOKING CESSASTION: Yes PREOPERATIVE DISCUSSION ON MORBID OBESITY: Yes PREOPERATIVE DISCUSSION ON APPROPRIATE USE OF NARCOTIC USE: Yes PREOPERATIVE EDUCATION: Multi Modal, Smoking Cessation and Weight Loss with BMI over 35. DISPOSITION: Stable to recovery room
[2025-04-11] MEDS: LACTATED RINGERS 1,000 ML IV ONE (09:55)
[2025-04-11 10:39] VITALS: BP 122/81; PULSE 61; RESP 16
[2025-04-11] MEDS ORDERED: ACETAMINOPHEN TAB 325 MG TAB PO SCH (12:00)
[2025-04-11] MEDS ORDERED: IBUPROFEN 600 MG TAB PO SCH (15:00)
== END 2025-04-11 11:32 | disposition home or self-care (01) ==
LOC: OR 05:49
PROVIDERS: ATTEND Surgery
DX: K42.9 Umbilical hernia without obstruction or gangrene (principal); G89.18 Other acute postprocedural pain
CPT/HCPCS: 49591; 64468; 85027; C1781; J2250; J1644; J1100; J0690; J2405; J3010; J0665